=== PATIENT | male | born 1990 | race Caucasian/White ===

== ENCOUNTER 2016-03-05 09:55 | Outpatient (CLI) | payer BC ==
[2016-03-05] VITALS (10 sets, daily range): BP systolic 111–130; BP diastolic 63–82
[2016-04-02] MEDS ORDERED: DIAZEPAM5 MG PO (14:24)
[2016-04-12] MEDS ORDERED: REMICADE 100MG100 MG IJ (09:24)
[2016-05-23] MEDS ORDERED: ASPIRIN 81MG TA81 MG PO (21:58)
[2016-05-23] MEDS ORDERED: OMEPRAZOLE20 MG PO (21:59)
[2016-05-23] MEDS ORDERED: ENTYVIO300 MG IV (22:01)
[2016-05-24] MEDS ORDERED: ZOFRAN ODT4 MG PO (00:09)
== END 2016-03-05 13:00 | disposition home or self-care (01) ==
LOC: COP 09:55
DX: K50.114 Crohn's disease of large intestine with abscess (principal)
CPT/HCPCS: J1745

== ENCOUNTER 2016-05-22 13:15 | Outpatient (CLI) | payer BC ==
[~2016-05-22 13:15] MED LIST: DIAZEPAM5 MG PO; REMICADE 100MG100 MG IJ
[2016-05-22 14:00] VITALS: BP 127/81
[2016-05-22 14:30] VITALS: BP 127/74
[2016-05-22 15:00] VITALS: BP 119/72
[2016-05-23] MEDS ORDERED: ASPIRIN 81MG TA81 MG PO (21:58)
[2016-05-23] MEDS ORDERED: OMEPRAZOLE20 MG PO (21:59)
[2016-05-23] MEDS ORDERED: ENTYVIO300 MG IV (22:01)
[2016-05-24] MEDS ORDERED: ZOFRAN ODT4 MG PO (00:09)
== END 2016-05-22 15:00 | disposition home or self-care (01) ==
LOC: COP 13:15
DX: K50.114 Crohn's disease of large intestine with abscess (principal)
CPT/HCPCS: J3380

== ENCOUNTER 2016-06-09 13:23 | Emergency (ER) | payer BC ==
[~2016-06-09] VITALS: Ht 180.3 cm; Wt 106.6 kg
[~2016-06-09 13:23] MED LIST changes: +ASPIRIN 81MG TA81 MG PO; +ENTYVIO300 MG IV; +OMEPRAZOLE20 MG PO; +ZOFRAN ODT4 MG PO
--- NOTE | 2016-06-09 13:34 | Emergency Room Report ---
History of Present Illness Time Seen by MD Roca Presenting Problem in Triage Pt arrived:Walked Presenting Problem:CHEST PAIN FOR TWO DAYS, WORSE TODAY. 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 N Clinical Suspician of Infection? N Mental Status: 1 - Regular (Normal Baseline) Sepsis Risk:Low Sepsis Risk Have you (or family members/close friends) recently traveled outside the [place]? N If Yes, where/when: Have you had exposure to infectious disease within the past month? TB? Other? Specify: Comment The patient is known to me from previous visits. He has a history of Crohn's disease. He now has complaints of LEFT arm pain, numbness in his ring finger and small finger of his LEFT hand, and intermittent chest pain. He says that Wednesday he had burning in his hands and some chest pain. Yesterday he had some chest pain. Today he woke up with a pain down his LEFT arm and numbness in his LEFT ring and small fingers. No neck pain. He says that he has had intermittent shortness of breath. He vomited Wednesday and has had a lot of heartburn. He says that he has been having problems with this heartburn and his stomach since he had a dose of new medication for his Crohn's disease about a week and a half ago. That medication was stopped. The last time I saw him in the emergency room was for that medication reaction on . The patient does not have any known heart disease. He does not have hypertension, diabetes, hyperlipidemia, and is a nonsmoker. He has no known family history of coronary artery disease. PULMONARY EMBOLISM RULE-OUT CRITERIA: 1. Age > 49? No 2. Pulse greater than 99/min? No 3. Room air pulse ox <95%? No 4. Hemoptysis? No 5. On estrogen? No 6. Prior diagnosis of DVT or PE? No 7. Surgery or trauma requiring endotracheal intubation or hospitalization in past 4 wks? No 8. Unilateral leg swelling? No The patient is low risk and the PERC score is 0, indicating no further workup for pulmonary embolism is necessary. ALLERGIES Coded Allergies: Penicillins (02/20/16) Sulfa (Sulfonamide Antibiotics) (03/02/15) cefaclor (From CECLOR) (03/02/15) infliximab (From REMICADE) (06/09/16) metronidazole (From FLAGYL) (02/20/16) vedolizumab (From ENTYVIO) (06/09/16) Home Medications Reported Medications Omeprazole (Omeprazole 20MG) 20 MG PO DAILY History Medical History General CAD? No Angina: No NV: No Hypertension? No Hyperlipidemia? No CHF? No DVT? No PE? No COPD? No Asthma? No Anemia? No GERD? No Gastric ulcers? No GI Bleed? No Hernia? No Thyroid Problems? No Hypothyroidism? No CVA? No Seizures? No Diabetes? No Renal Insuffiency? No End Stage Renal Disease? No UTI? No Stones? No BPH? No GB Disease: No Nephritic Syndrome? No Asplenia? No Hepatitis? No Sickle Cell Disease? No Arthritis? No Migraines? No Cataracts? No Glaucoma? No MRSA? No HIV? No TB? No Anxiety? Yes Depression? No Cancer? No More? Yes Additional hx: CHROHS Immunization Hx DT/Tetanus 1-4 YRS Surgical Hx Previous Surgery?Y TONSILS EAR TUBES Social History Smoking Hx Smoker: Never Smoker Tobacco: No Alcohol Alcohol: No Review of Systems All Other Systems Reviewed and Negative Respiratory denies shortness of breath Cardiovascular chest pain Gastrointestinal see HPI Psychiatric/Neurological numbness Physical Exam Vital Signs Vital Signs Date Time Temp Pulse Resp B/P Pulse O2 O2 Flow FiO2 Ox Delivery Rate 06/09 1325 97.6 80 14 159/77 99 General Appearance normal appearance, WD/WN Eye Exam - bilateral eye normal exam, bilateral eye PERRL, bilateral eye EOMI Ear, Nose, Throat hearing grossly normal, normal ENT inspection Neck normal inspection, non-tender, supple, full range of motion Respiratory Status Yes: trachea midline, chest symmetrical, non tender chest. No: respiratory distress. Lung Sounds bilateral: normal breath sounds, lungs clear. 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 No Results/Orders Laboratory Tests 06/09/16 1300: Sodium 141, Potassium 3.8, Chloride 103, Carbon Dioxide 31, BUN 13, Creatinine 1.1, Estimated Creat Clear 152, Estimated GFR (MDRD) 80, Glucose 95, Calcium 9.3 , Total Bilirubin 0.8, AST 17, ALT 46, Alkaline Phosphatase 79, Creatine Kinase 71, CK-MB (CK-2) Rel Index 0.7, CK and CKMB Interp < 0.5, Troponin I 0.03, Total Protein 8.3 H, Albumin 4.0, Globulin 4.3 H, Albumin/Globulin Ratio 0.9 L, WBC 5.1, RBC 5.22, Hgb 16.1, Hct 46.8, MCV 89.7, RDW 13.0, Plt Count 260, MPV 6.3 L , Gran % 57.0, Gran # 2.9, Lymphocytes % 30.3, Monocytes % 6.7, Eosinophils % 5.4, Basophils % 0.6, Lymphocytes # 1.5, Monocytes # 0.3, Eosinophils # 0.3, Basophils # 0.0, PUBS MCHC 34.3, MCH 30.8 Current Medication Orders Sig/Brianna Start time Last Medication Dose Route Stop Time Status Admin Aspirin 324 MG ONCE ONE 06/09 1345 DC 06/09 PO 06/09 134 1335 Sodium Chloride 10 ML PRN PRN 06/09 1345 AC IV 06/10 1333 Aspirin 0 .STK-MED ONE 06/09 1335 DC .ROUTE Orders Procedure Date/time Status ELECTROCARDIOGRAM REQUEST 06/09 133 Active CHEST-PORTABLE 06/09 133 Active IV SALINE LOCK 06/09 133 Active CBC WITH AUTO DIFF 06/09 133 Complete CARDIAC ENZYMES 06/09 133 Complete CHEM 12 PROFILE 06/09 1333 Complete CM/EKG CM/EKG Comments EKG interpreted by Ralf Cobian MD: Rhythm: sinus Rate: 71 [place]: normal Ectopy: none Conduction: normal ST Segment Changes: none T Wave Changes: none Q Waves: none No evidence of acute ischemia or injury XRAY/CT/US XRAY/CT/US XRAY chest Comment X-ray interpreted by Ralf Cobian M.D. No infiltrate, pneumothorax, pleural effusion, or wide mediastinum. Progress - 2:23 PM: I estimate there is LOW risk for PULMONARY EMBOLISM, ACUTE CORONARY SYNDROME, OR THORACIC AORTIC DISSECTION, thus I consider the discharge disposition reasonable. He does not have risk factors. His symptoms are atypical for cardiovascular disease. Departure Departure Disposition DC Home or Self Care(routine) Clinical Impression Primary Impression: Atypical chest pain Condition STABLE Referrals Heath Malagon MD (Family) Patient Instructions DI for Atypical Chest Pain Additional Instructions Additional instructions for CHEST PAIN: See your physician as soon as possible for further evaluation. Return immediately if worsening chest pain, vomiting, shortness of breath, fever, coughing of blood. ED Critical Care Critical Care No at [id number]
[2016-06-09 13:42] LABS: HEMOGLOBIN 16.1 g/dL (14.1-18.0); LYMPH # 1.5 K/mm3 (0.7-4.5); LYMPH % 30.3 % (10-50)
[2016-06-09 14:03] LABS: BUN 13 mg/dL (7-18)
[2016-06-09 14:12] LABS: GFR (ESTIMATED) 80 ML/MIN (>60)
[2016-06-09 14:34] VITALS: BP 159/77
--- NOTE | 2016-06-09 17:51 | RADIOLOGY REPORT PS360 ---
CHEST-PORTABLE COMPARISON: PA and lateral chest 04/12/2016 HISTORY: Chest pain TECHNIQUE: Portable upright chest FINDINGS: The lung snyder are well expanded and appear clear of infiltrate. The cardiac silhouette and vascularity are normal and the costophrenic angles are clear. IMPRESSION: Negative portable chest
== END 2016-06-09 14:35 | disposition home or self-care (01) ==
LOC: ER 13:23
PROVIDERS: Emergency Medicine
DX: R07.89 Other chest pain (principal); K50.90 Crohn's disease, unspecified, without complications

== ENCOUNTER → 2017-01-04 | Outpatient (CLI) | payer BC ==
[2017-01-04 15:51] LABS: HEMOGLOBIN 15.1 g/dL (14.1-18.0); LYMPH # 1.5 K/mm3 (0.7-4.5); LYMPH % 24.9 % (10-50)
[2017-01-04 17:15] LABS: BUN 7 mg/dL (7-18)
[2017-01-04 17:16] LABS: GFR (ESTIMATED) 89 ML/MIN (>60)
== END ==
LOC: LAB 15:12
PROVIDERS: Colon & Rectal Surgery
DX: K50.10 Crohn's disease of large intestine without complications (principal)